=== PATIENT | female | born 1990 | race Two or more races ===

== ENCOUNTER 2018-11-15 22:32 | Emergency (ER) | payer SELFPAY ==
[2018-11-15 23:20] LABS: ABSOLUTE EOSINOPHILS # (AUTO) 0.1 10^3/uL (0.0-0.6); ABSOLUTE MONOCYTES (AUTO) 0.5 10^3/uL (0.1-1.4); ABSOLUTE NEUT (AUTO) 3.7 10^3/uL (1.7-8.2); BASOPHILS % (AUTO) 0.6 % (0-2); EOSINOPHILS % (AUTO) 0.7 % (0-6); HEMATOCRIT 37.4 % (36.0-47.0); HEMOGLOBIN 12.4 g/dL (12.0-15.5); LYMPHOCYTES % (AUTO) 40.9 % (13-45); MEAN CORPUSCULAR HEMOGLOBIN 26.6 pg (27.0-33.4); MEAN CORPUSCULAR VOLUME 81 fl (80-97); MONOCYTES % (AUTO) 6.3 % (3-13); PLATELET COUNT 548 10^3/uL (150-450); RED BLOOD COUNT 4.65 10^6/uL (3.72-5.28); RED CELL DISTRIBUTION WIDTH 18.2 % (11.5-14.0); SEGMENTED NEUTROPHILS % (AUTO) 51.5 % (42-78); TOTAL CELLS COUNTED % (AUTO) 100 %; WHITE BLOOD COUNT 7.3 10^3/uL (4.0-10.5)
[2018-11-15 23:23] LABS: APPEARANCE,URINE SLIGHTLY-CLOUDY; BILIRUBIN,URINE NEGATIVE (NEGATIVE); COLOR,URINE YELLOW; GLUCOSE, URINE NEGATIVE (NEGATIVE); KETONES,URINE NEGATIVE (NEGATIVE); LEUKOCYTE ESTERASE,URINE SMALL (NEGATIVE); NITRITE,URINE NEGATIVE (NEGATIVE); PROTEIN,URINE 100 mg/dL (NEGATIVE); URINE SPECIFIC GRAVITY 1.008; UROBILINOGEN,URINE NEGATIVE mg/dL (<2.0)
[2018-11-15 23:38] LABS: URINE AMPHETAMINES SCREEN NEGATIVE; URINE BARBITURATES SCREEN NEGATIVE; URINE BENZODIAZEPINES SCREEN NEGATIVE; URINE COCAINE SCREEN UNCONFIRMED POSITIVE; URINE MARIJUANA (THC) SCREEN UNCONFIRMED POSITIVE; URINE METHADONE SCREEN NEGATIVE; URINE PHENCYCLIDINE SCREEN NEGATIVE
[2018-11-15 23:40] LABS: ALANINE AMINOTRANSFERASE 12 U/L (9-52); ALBUMIN 4.9 g/dL (3.5-5.0); ALCOHOL 96 mg/dL (NONE DETECTED); ALKALINE PHOSPHATASE 75 U/L (38-126); ANION GAP 14 (5-19); ASPARTATE AMINO TRANSFERASE 14 U/L (14-36); BILIRUBIN,DIRECT 0.1 mg/dL (0.0-0.4); BILIRUBIN,TOTAL 0.6 mg/dL (0.2-1.3); BLOOD UREA NITROGEN 6 mg/dL (7-20); CALCIUM 10.5 mg/dL (8.4-10.2); CARBON DIOXIDE 22 mmol/L (22-30); CHLORIDE 105 mmol/L (98-107); GLUCOSE 102 mg/dL (75-110); POTASSIUM 3.9 mmol/L (3.6-5.0); SODIUM 140.9 mmol/L (137-145); TOTAL PROTEIN 8.5 g/dL (6.3-8.2)
[2018-11-15 23:43] LABS: ACETAMINOPHEN < 10 ug/mL (10-30); SALICYLATE < 1.0 mg/dL (2.0-20.0)
--- NOTE | 2018-11-16 04:16 | ER Document Report ---
ED Psych Disorder / Suicide - General TRAVEL OUTSIDE OF THE [place] IN LAST 30 DAYS: No <SURINDER RAWLS - Last Filed: 11/16/18 05:47> <JENAE OLIVERA - Last Filed: 11/16/18 11:29> <YOANNA WOOTEN - Last Filed: 11/16/18 11:42> - General Chief Complaint: Suicidal Ideation Stated Complaint: SUICIDE IDEATION Time Seen by Provider: 11/15/18 22:59 Primary Care Provider: [facility] [Provider Group] - Follow up as needed Notes: Patient is a 20-year-old female presents to the emergency department for suicidal ideations. Patient has an extensive explanation as to why she is in the emergency room. Patient states she had a child with her sister's boyfriend. States that started father of her child moved her from [place] to [facility] tube move away from her sister. States her sister came into town yesterday trying to take the baby from her. States the baby's father was then citing with her sister and wanted to take the baby away from her. Patient states she feels as though she has no vertigo now because she was brought to [place] and away from her family. Patient states "if I am not here anymore everything would be okay." Patient's also talking to me about cutting her wrists, according to EMS was found in her bed with a knife. Patient does admit to drinking alcohol this evening although does have a GCS of 15. Past medical history: None Medications: None Allergies: None (SURINDER RAWLS) - Related Data Allergies/Adverse Reactions: No Known Drug Allergies Allergy (Verified 11/15/18 23:21) Past Medical History - General Information source: Patient - Social History Smoking Status: Current Every Day Smoker Frequency of alcohol use: Social Family History: Reviewed & Not Pertinent Patient has suicidal ideation: Yes Patient has homicidal ideation: No Renal/ Medical History: Denies: Hx Peritoneal Dialysis <SURINDER RAWLS - Last Filed: 11/16/18 05:47> Review of Systems - Review of Systems Constitutional: No symptoms reported EENT: No symptoms reported Cardiovascular: No symptoms reported Respiratory: No symptoms reported Gastrointestinal: No symptoms reported Genitourinary: No symptoms reported Female Genitourinary: No symptoms reported Musculoskeletal: No symptoms reported Skin: No symptoms reported Hematologic/Lymphatic: No symptoms reported Neurological/Psychological: See HPI <BALDEVJERICASURINDER - Last Filed: 11/16/18 05:47> Physical Exam <SURINDER RAWLS - Last Filed: 11/16/18 05:47> - Vital signs Vitals: Temp Pulse Resp BP Pulse Ox 98.4 F 97 20 137/85 H 100 11/15/18 22:58 11/15/18 22:58 11/15/18 22:58 11/15/18 22:58 11/15/18 22:58 - Notes Notes: GENERAL: Alert, interacts well. No acute distress. HEAD: Normocephalic, atraumatic. EYES: Pupils equal, round, and reactive to light. Extraocular movements intact. ENT: Oral mucosa moist, tongue midline. NECK: Full range of motion. Supple. Trachea midline. LUNGS: Clear to auscultation bilaterally, no wheezes, rales, or rhonchi. No respiratory distress. HEART: Regular rate and rhythm. No murmur ABDOMEN: Soft, non-tender. Non-distended. Bowel sounds present in all 4 quadrants. EXTREMITIES: Moves all 4 extremities spontaneously. No edema, normal radial and dorsalis pedis pulses bilaterally. No cyanosis. BACK: no cervical, thoracic, lumbar midline tenderness. No saddle anesthesia, normal distal neurovascular exam. NEUROLOGICAL: Alert and oriented x3. Normal speech. cranial nerves II through XII grossly intact PSYCH: Normal affect, depressed mood. SKIN: Warm, dry, normal turgor. No rashes or lesions noted. (SURINDER RAWLS) Course - Laboratory Result Diagrams: 11/15/18 23:05 11/15/18 23:05 <SURINDER RAWLS - Last Filed: 11/16/18 05:47> - Laboratory Result Diagrams: 11/15/18 23:05 11/15/18 23:05 <JENAE OLIVERA - Last Filed: 11/16/18 11:29> - Laboratory Result Diagrams: 11/15/18 23:05 11/15/18 23:05 <YOANNA WOOTEN - Last Filed: 11/16/18 11:42> - Re-evaluation Re-evalutation: 11/16/18 04:16 Patient is a positive for cocaine and marijuana, patient's alcohol level is 96. Patient does have a GCS of 15 and is holding a stable conversation with me at bedside. Patient is currently medically cleared for psychiatric evaluation. (SURINDER RAWLS) - Vital Signs Vital signs: Temp Pulse Resp BP Pulse Ox 98.1 F 70 16 130/81 H 98 11/16/18 09:24 11/16/18 09:24 11/16/18 09:24 11/16/18 09:24 11/16/18 09:24 - Laboratory Laboratory results interpreted by me: 11/15/18 11/15/18 11/15/18 23:05 23:05 23:05 MCH 26.6 L RDW 18.2 H Plt Count 548 H BUN 6 L Creatinine 0.44 L Calcium 10.5 H Total Protein 8.5 H Urine Protein 100 H Ur Leukocyte Esterase SMALL H Salicylates < 1.0 L Acetaminophen < 10 L Discharge <SURINDER RAWLS - Last Filed: 11/16/18 05:47> <JENAE OLIVERA - Last Filed: 11/16/18 11:29> <YOANNA WOOTEN - Last Filed: 11/16/18 11:42> - Discharge Clinical Impression: Suicidal ideations Condition: Stable Disposition: HOME, SELF-CARE Additional Instructions: You have been evaluated and assessed at [facility] Emergency Department by both the medical and behavioral health teams after presenting for alcohol intoxication and suicidal thoughts and are now deemed appropriate for discharge. While in the ED, you received an initial medical screening, lab work, EKG, medications, direct staff observation, clinical evaluation, physician assessment, and outpatient resources. You were cleared from both services and Mobile crisis resources were provided to you for when these situations arise. You are encour aged to develop positive coping skills through outpatient counseling. You are also encouraged to follow up with an outpatient mental health provider of your choosing. DEPRESSION: Your evaluation reveals that you have mental depression. While symptoms may be vague, they often include disturbance of sleep, fatigue, loss of appetite, and general loss of interest in life. While depression may be a side effect of drugs, or a reaction to a major change in your life, many cases have no known cause. If depression is acute, and related to a major loss in your life, you can expect it to clear completely with time. If you have been depressed a long time, are prone to repeated bouts of depression or low mood, or have been thinking of suicide, get help. Depression can be treated with anti-depressant medication and counselling. Long-term depression will often take a few weeks to clear, even with appropriate medication. Follow-up care is important. SUICIDAL IDEATION: Suicidal ideation is a common medical term for thoughts about suicide, which may be as detailed as a formulated plan, without the suicidal act itself. Although most people who undergo suicidal ideation do not commit suicide, some go on to make suicide attempts. The range of suicidal ideation varies greatly from fleeting to detailed planning, role playing, and unsuccessful attempts. While thoughts about suicide are common, most people do not carry out serious actions to commit suicide. Based upon your evaluation and discussion with you, we do not believe you are currently at risk to act upon your thoughts of suicide. You have agreed to return to the Emergency Department, at any time, if you feel inclined to act upon your suicidal thoughts. FOLLOW-UP CARE: If you have been referred to a physician for follow-up care, call the physicians office for an appointment as you were instructed or within the next two days. If you experience worsening or a significant change in your symptoms, notify the physician immediately or return to the Emergency Department at any time for re-evaluation. Referrals: [facility] [Provider Group] - Follow up as needed
--- NOTE | 2018-11-16 07:43 | EKG REPORT ---
SEVERITY:- NORMAL ECG - SINUS RHYTHM : Confirmed by: Catarino Jacobson MD 16-Nov-2018 07:42:32
--- NOTE | 2018-11-16 10:34 | ER Document Report ---
Doctor's Note Notes: 11/16/18 10:33 Rounds: Chart reviewed and patient interviewed. Patient seems to be fine this morning. She was being evaluated for possible suicidal ideation. Patient denies feeling that way at this time. Lab studies were positive for cocaine and marijuana and her drug screen and her alcohol level was 96. Vital signs are all normal. Patient appears to be medically stable for transfer or discharge. Steven Lara MD
--- NOTE | 2018-11-16 11:43 | PSYCHOLOGICAL NOTE ---
Psych Note - Psych Note Date seen by psych provider: 11/16/18 Time seen by psych provider: 07:30 Psych Note: Reason for consult: Contact Permissions: Patient is alert and oriented x 4. Mood is "Okay" with affect. Patient denies SI, HI, and AV/H, does not appear to be responding to internal stimuli, and no delusions were noted. Conversational speech was WNL for rate, tone, and prosody. Eye contact was well maintained. Thought processes were linear, organized, and rational. Intellectual abilities were estimated within the average range. Attention/concentration was WNL while, insight, judgment, and impulse control were good. Calderon Abbott [phone] VM not set up Sister called asking for update. When informed that patient consent was needed she hung up. Diagnosis: Medication recommendations as per psychiatric provider, Dr. Weber are as follows: No medication recommendations at this time. Impression/Plan: Patient is psychiatrically clear from acute psychiatric services and recommended to discharge to home/selfcare as there is no risk of harm to self or others aeb patient is sober, future focused and goal oriented on getting back to her baby and moving forward with her relationship with the baby's father when the DNA paternity test results are received today or tomorrow. A CPS report was made due to concerns of drug use and drugs in the environment as mother was positive for THC and cocaine and admitted to use. She denies depression nevertheless, Patient was provided with psychoeducation and resources for MH to include MCS. Consulted Dr. Brooks in the care and treatment of this patient and ED physician who is in agreement with disposition and recommendation.
[2018-11-16 12:41] VITALS: BP 128/76
== END 2018-11-16 11:50 | disposition home or self-care (01) ==
LOC: ER 22:32
DX: R45.851 Suicidal ideations (principal)
CPT/HCPCS: 36415; 80053; 80307; 81001; 84703; 85025; 87086; 87088; 87186; 93005; 93010; 99285